=== PATIENT | female | born 1965 | race Hispanic/Latino ===

== ENCOUNTER → 2016-05-09 | Outpatient (CLI) | payer OTHER ==
[~2016-05-09] MED LIST: ALPR.25T GT; ALPR0.2550 PO; ALPR0.5T PO; CAPT25TA3 PO; CIPR500T4 PO; FLUO10CA19 PO; LISI10TA2 PO; METR500T PO; NITR100C3 PO; OMEP20CA12 PO; depression med
--- OUTSIDE RECORDS SUMMARY | 2016-05-09 10:05 | XMS REPORT | Continuity of Care Document ---
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 No 08/26/15 11:50am Resuscitation Status Full Code 08/26/15 11:50am Chief Complaint and Reason for Visit Chief Complaint Respiratory Problems Reason for Visit [id number] Anxiety Problems Active Problems Medical Problem Onset Date Status Anxiety Unknown Acute Breathing problem Unknown Acute Medications Current Home Medications Medication Dose Units Route Directions Days/Qty Instructions Start Date Captopril 25 Mg 25 Mg Oral Daily DAILY AT 8PM 09/03/12 Lisinopril 10 Mg 10 Mg Oral Daily 08/26/15 Past Home Medications Medication Directions Ordered Status [Depression Med] , 08/25/12 Discontinued Metronidazole 500 Mg Tablet, 500 Mg Oral Twice A Day 08/25/12 Discontinued Fluoxetine Hcl (Prozac) 10 Mg Capsule, 10 Mg Oral Daily 08/25/12 Discontinued Alprazolam 0.25 Mg Tab, 0.25 Mg G Tube 08/25/12 Discontinued Alprazolam 0.25 Mg Tab.rapdis, 1 Each Oral Q8hr Prn 08/25/12 Discontinued Omeprazole 20 Mg Capsule., 1 Cap Oral Daily 08/25/12 Discontinued Nitrofurantoin Macrocrystals 100 Mg Capsule, 100 Mg Oral Twice A Day Discontinued Social History Social History Problem Response Recorded Date/Time Alcohol Use Denies Use 08/26/2015 11:50am Recreational Drug Use No 08/26/2015 11:50am Recent Foreign Travel Y visiting from [place] 08/29/2012 10:42pm Recent Infectious Disease Exposure No 08/26/2015 11:30am Smoking Status Unknown if Ever Smoked 08/26/2015 11:50am Do you dip or chew tobacco? No 08/26/2015 11:50am Query Response Start Date Stop Date Smoking Status Unknown if Ever Smoked Hospital Discharge Instructions No hospital discharge instructions. Plan of Care Discharge Date 08/26/15 2:00pm Disposition 01 HOME, SELF-CARE Condition at Discharge Improved Instructions/Education Provided Generalized Anxiety Disorder (ED) Forms Provided Local Medical Staff Listing Prescriptions See Medication Section Referrals [facility] IGOR SCOTT MD - Primary Care Physician IGOR SCOTT MD - Primary Care Physician Additional Instructions/Education All discharge instructions reviewed with patient and/or family. Voiced understanding. Follow-up with your doctor within one week for recheck. Return for breathing problems, chest pain or other concerns as needed. Functional Status No functional status results. Allergies, Adverse Reactions, Alerts No known allergies. Immunizations Name Given Type Tetanus Booster (TDap) Unknown Historical Vital Signs Acute Vital Signs Vital Response Date/Time Temperature (Fahrenheit) 97.6 degrees F (97.6 - 99.5) 08/26/2015 11:30am Temperature (Calculated Celsius) 36.44409 degrees C (36.4 - 37.5) 08/26/2015 11:30am Pulse Rate (adult) 70 bpm (60 - 90) 08/26/2015 1:50pm Respiratory Rate 18 bpm (12 - 24) 08/26/2015 1:50pm O2 Sat by Pulse Oximetry 98 % (88 - 100) 08/26/2015 1:50pm Blood Pressure 129/62 mm Hg 08/26/2015 1:50pm Blood Pressure Mean 98 mm Hg 08/26/2015 11:30am Pain Pain Intensity 0 08/26/2015 1:50pm Height (Feet) 5 feet 08/26/2015 11:30am Height (Inches) 2 inches 08/26/2015 11:30am Height (Calculated Centimeters) 157.344004 cm 08/26/2015 11:30am Weight (Pounds) 160 pounds 08/26/2015 11:30am Weight (Calculated Kilograms) 72.083887 kilograms 08/26/2015 11:30am Height 5 ft 2 in Weight 160 lb Body Mass Index 29.3 kg/m^2 Results Laboratory Results Test Name Result Units Flags Reference Collection Date/Time Result Date/ Time Comments White Blood Count 4.1 10^3/uL L 4.3-11.0 08/26/2015 12:00pm 08/26/2015 12 :13pm Red Blood Count 4.26 10^6/uL L 4.35-5.85 08/26/2015 12:00pm 08/26/2015 12 :13pm Hemoglobin 13.0 G/DL 11.5-16.0 08/26/2015 12:00pm 08/26/2015 12:13pm Hematocrit 38 % 35-52 08/26/2015 12:00pm 08/26/2015 12:13pm Mean Corpuscular Volume 89 FL 80-99 08/26/2015 12:00pm 08/26/2015 12: 13pm Mean Corpuscular Hemoglobin 31 PG 25-34 08/26/2015 12:00pm 08/26/2015 12:13pm Mean Corpuscular Hemoglobin Concent 34 G/DL 32-36 08/26/2015 12:00pm 12:13pm Red Cell Distribution Width 13.6 % 10.0-14.5 08/26/2015 12:00pm 2015 12:13pm Platelet Count 344 10^3/uL 130-400 08/26/2015 12:00pm 08/26/2015 12: 13pm Mean Platelet Volume 9.0 FL 7.4-10.4 08/26/2015 12:00pm 08/26/2015 12: 13pm Neutrophils (%) (Auto) 61 % 42-75 08/26/2015 12:00pm 08/26/2015 12: 13pm Lymphocytes (%) (Auto) 32 % 12-44 08/26/2015 12:00pm 08/26/2015 12: 13pm Monocytes (%) (Auto) 5 % 0-12 08/26/2015 12:00pm 08/26/2015 12:13pm Eosinophils (%) (Auto) 1 % 0-10 08/26/2015 12:00pm 08/26/2015 12:13pm Basophils (%) (Auto) 1 % 0-10 08/26/2015 12:00pm 08/26/2015 12:13pm Neutrophils # (Auto) 2.5 X 10^3 1.8-7.8 08/26/2015 12:00pm 08/26/2015 12:13pm Lymphocytes # (Auto) 1.3 X 10^3 1.0-4.0 08/26/2015 12:00pm 08/26/2015 12:13pm Monocytes # (Auto) 0.2 X 10^3 0.0-1.0 08/26/2015 12:00pm 08/26/2015 12: 13pm Eosinophils # (Auto) 0.0 10^3/uL 0.0-0.3 08/26/2015 12:00pm 08/26/2015 12:13pm Basophils # (Auto) 0.0 10^3/uL 0.0-0.1 08/26/2015 12:00pm 08/26/2015 12 :13pm D-Dimer 0.46 UG/ML 0.00-0.49 08/26/2015 12:00pm 08/26/2015 12:45pm Urine Color YELLOW 08/26/2015 11:50am 08/26/2015 12:08pm Urine Clarity CLEAR 08/26/2015 11:50am 08/26/2015 12:08pm Urine pH 8 5-9 08/26/2015 11:50am 08/26/2015 12:08pm Urine Specific [place] 1.010 * 1.016-1.022 08/26/2015 11:50am 2015 12:08pm Urine Protein NEGATIVE NEGATIVE 08/26/2015 11:50am 08/26/2015 12: 08pm Urine Glucose (UA) NEGATIVE NEGATIVE 08/26/2015 11:50am 08/26/2015 12 :08pm Urine RBC (Auto) NEGATIVE NEGATIVE 08/26/2015 11:50am 08/26/2015 12: 08pm Urine Ketones NEGATIVE NEGATIVE 08/26/2015 11:50am 08/26/2015 12: 08pm Urine Nitrite NEGATIVE NEGATIVE 08/26/2015 11:50am 08/26/2015 12: 08pm Urine Bilirubin NEGATIVE NEGATIVE 08/26/2015 11:50am 08/26/2015 12: 08pm Urine Urobilinogen NORMAL MG/DL NORMAL 08/26/2015 11:50am 08/26/2015 12 :08pm Urine Leukocyte Esterase 3+ * NEGATIVE 08/26/2015 11:50am 08/26/2015 12 :08pm Urine RBC NONE /HPF 08/26/2015 11:50am 08/26/2015 12:08pm Urine WBC 2-5 /HPF 08/26/2015 11:50am 08/26/2015 12:08pm Urine Bacteria FEW /HPF * 08/26/2015 11:50am 08/26/2015 12:08pm Urine Squamous Epithelial Cells 5-10 /HPF 08/26/2015 11:50am 2015 12:08pm Urine Crystals NONE /LPF 08/26/2015 11:50am 08/26/2015 12:08pm Urine Casts NONE /LPF 08/26/2015 11:50am 08/26/2015 12:08pm Urine Mucus NEGATIVE /LPF 08/26/2015 11:50am 08/26/2015 12:08pm Urine Culture Indicated YES 08/26/2015 11:50am 08/26/2015 12:08pm Sodium Level 141 MMOL/L 135-145 08/26/2015 12:00pm 08/26/2015 12:32pm Potassium Level 3.4 MMOL/L L 3.6-5.0 08/26/2015 12:00pm 08/26/2015 12: 32pm Chloride Level 107 MMOL/L 98-107 08/26/2015 12:00pm 08/26/2015 12:32pm Carbon Dioxide Level 25 MMOL/L 21-32 08/26/2015 12:00pm 08/26/2015 12: 32pm Anion Gap 9 MMOL/L 5-14 08/26/2015 12:00pm 08/26/2015 12:32pm Blood Urea Nitrogen 9 MG/DL 7-18 08/26/2015 12:00pm 08/26/2015 12:32pm Creatinine 0.58 MG/DL L 0.60-1.30 08/26/2015 12:00pm 08/26/2015 12:32pm BUN/Creatinine Ratio 16 08/26/2015 12:00pm 08/26/2015 12:32pm Estimat Glomerular Filtration Rate > 60 08/26/2015 12:00pm 2015 12:32pm GFR INTERPRETIVE DATA UNITS FOR ESTIMATED GFR (eGFR): mL/min/1.73 M2 REFERENCE RANGE FOR ESTIMATED GFR (eGFR) eGFR NORMAL eGFR >60 MODERATELY DECREASED eGFR 30-59 SEVERLY DECREASED eGFR 15-29 KIDNEY FAILURE <15 (OR DIALYSIS) Glucose Level 106 MG/DL H 70-105 08/26/2015 12:00pm 08/26/2015 12:32pm Calcium Level 9.6 MG/DL 8.5-10.1 08/26/2015 12:00pm 08/26/2015 12:32pm Magnesium Level 1.9 MG/DL 1.8-2.4 08/26/2015 12:00pm 08/26/2015 12: 32pm Total Bilirubin 0.8 MG/DL 0.1-1.0 08/26/2015 12:00pm 08/26/2015 12: 32pm Alkaline Phosphatase 90 U/L 40-136 08/26/2015 12:00pm 08/26/2015 12: 32pm Aspartate Amino Transf (AST/SGOT) 15 U/L 5-34 08/26/2015 12:00pm 2015 12:32pm Alanine Aminotransferase (ALT/SGPT) 12 U/L 0-55 08/26/2015 12:00pm 12:32pm Troponin I < 0.30 NG/ML <0.30 08/26/2015 12:00pm 08/26/2015 12:36pm Total Protein 7.4 G/DL 6.4-8.2 08/26/2015 12:00pm 08/26/2015 12:32pm Albumin 4.5 G/DL 3.2-4.5 08/26/2015 12:00pm 08/26/2015 12:32pm Procedures Procedure Status Date Provider(s) Tracing only of electrocardiogram Active 08/26/15 NAMRATA WYNNE MD Encounters Encounter Location Arrival/Admit Date Discharge/Depart Date Attending Provider Departed Emergency Room [facility] 08/26/15 11:36am 2:00pm NAMRATA WYNNE MD Recent Diagnosis
--- NOTE | 2016-05-11 10:50 | Diagnostic Imaging Report ---
Bilateral screening mammogram The current study was also evaluated with a Computer Aided Detection (CAD) system. INDICATION: Screening. No current complaints stated on the questionnaire. COMPARISON: None. This is a baseline exam. FINDINGS: The breasts are composed of scattered fibroglandular densities. Slight asymmetric appearance in the fibroglandular tissue is seen with no definite focal mass. There is no mass, architectural distortion or suspicious calcification seen. IMPRESSION: No mammographic evidence of malignancy. Annual screening mammogram is recommended. ACR BI-RADS Category 2: Benign findings. Result letter will be mailed to the patient. Note: At least 10% of breast cancer is not imaged by mammography. Dictated by: Dictated on workstation # [id number]
== END ==
LOC: RAD 10:01
PROVIDERS: ATTEND Nurse Practitioner Adult Health
DX: Z12.31 Encounter for screening mammogram for malignant neoplasm of breast (principal)
CPT/HCPCS: 77067